=== PATIENT | male | born 1945 | race Caucasian/White ===

== ENCOUNTER 2017-12-05 10:11 | Inpatient (IN) | payer MEDICARE ==
[2017-12-05] MEDS ORDERED: PANTOPRAZOLE 40 MG/10 ML VIAL IVP STA (10:31)
[2017-12-05] MEDS ORDERED: SODIUM CHLORIDE 0.9% 500 ML 500 ML IV STA (10:31)
--- NOTE | 2017-12-05 10:44 | ED ---
General Adult HPI - General Chief complaint: GI Bleed Stated complaint: rectal bleeding Time Seen by Provider: 12/05/17 10:11 Source: patient, RN notes reviewed Mode of arrival: ambulatory Limitations: no limitations - History of Present Illness Initial comments: This is a 72-year-old male comes emergency Department complaining of bright red blood since Sunday morning. Patient states she's never had this before. Patient denies any blood thinners. Patient states she does have history of hemorrhoids but he states the amount of blood in the toilet has been quite concerning. Patient denies any other symptoms at this time. Patient denies lightheadedness dizziness or near syncopal episode. Patient denies any shortness of breath per patient denies any chest pain. Patient denies any abdominal pain. Patient denies any nausea vomiting or diarrhea. Patient states he has been told he had a little esophageal ulcer in the past but has not been giving any problems recently. Patient denies any recent fever chills. - Related Data Home Medications Medication Instructions Recorded Confirmed Aspirin [Desha Aspirin EC] 81 mg PO DAILY 12/05/17 12/05/17 Atorvastatin [Lipitor] 40 mg PO DAILY 12/05/17 12/05/17 B Complex-Vit C-Vit E-Zinc [Z-Bec] 1 tab PO DAILY 12/05/17 12/05/17 Cholecalciferol [Vitamin D3] 1,000 unit PO DAILY 12/05/17 12/05/17 Hydrochlorothiazide [Hydrodiuril] 25 mg PO DAILY 12/05/17 12/05/17 Multivitamins, Thera [Multivitamin 1 tab PO DAILY 12/05/17 12/05/17 (formulary)] Naproxen Sodium [Aleve] 440 mg PO DAILY 12/05/17 12/05/17 Pantoprazole [Protonix] 40 mg PO DAILY 12/05/17 12/05/17 Allergies Allergy/AdvReac Type Severity Reaction Status Date / Time Sulfa (Sulfonamide Allergy Unknown Verified 12/05/17 11:11 Antibiotics) Review of Systems ROS Statement: Those systems with pertinent positive or pertinent negative responses have been documented in the HPI. ROS Other: All systems not noted in ROS Statement are negative. Past Medical History Past Medical History: Hyperlipidemia, Hypertension Additional Past Medical History / Comment(s): ulcers History of Any Multi-Drug Resistant Organisms: None Reported Additional Past Surgical History / Comment(s): colonoscopy Past Psychological History: No Psychological Hx Reported Smoking Status: Former smoker Past Alcohol Use History: Occasional Past Drug Use History: None Reported General Exam - General Exam Comments Initial Comments: GENERAL: Patient is well-developed and well-nourished. Patient is nontoxic and well- hydrated and is in no acute distress. ENT: Neck is soft and supple. No significant lymphadenopathy is noted. Oropharynx is clear. Moist mucous membranes. Neck has full range of motion without eliciting any pain. EYES: The sclera were anicteric and conjunctiva were pink and moist. Extraocular movements were intact and pupils were equal round and reactive to light. Eyelids were unremarkable. PULMONARY: Unlabored respirations. Good breath sounds bilaterally. No audible rales rhonchi or wheezing was noted. CARDIOVASCULAR: There is a regular rate and rhythm without any murmurs gallops or rubs. ABDOMEN: Soft and nontender with normal bowel sounds. No palpable organomegaly was noted. There is no palpable pulsatile mass. RECTAL: On rectal exam there was bright red blood but no obvious source. SKIN: Skin is clear with no lesions or rashes and otherwise unremarkable. NEUROLOGIC: Patient is alert and oriented x3. Cranial nerves II through XII are grossly intact. Motor and sensory are also intact. Normal speech, volume and content. Symmetrical smile. MUSCULOSKELETAL: Normal extremities with adequate strength and full range of motion. No lower extremity swelling or edema. No calf tenderness. LYMPHATICS: No significant lymphadenopathy is noted PSYCHIATRIC: Normal psychiatric evaluation. Limitations: no limitations Course Vital Signs 12/05/17 10:14 Temperature 97.6 F Pulse Rate 112 H Respiratory 20 Rate Blood Pressure 132/78 O2 Sat by Pulse 96 Oximetry Medical Decision Making - Medical Decision Making On rectal exam patient bright red blood but no source of bleeding. I spoke to the [facility] hospitalist and admitted the patient I wrote admitting orders I repeated CBCs and I consult the GI - Lab Data Result diagrams: 12/05/17 11:17 12/05/17 11:17 Lab Results 12/05/17 12/05/17 12/05/17 Range/Units 11:17 11:17 11:17 WBC 9.3 (3.8-10.6) k/uL RBC 3.92 L (4.30-5.90) m/uL Hgb 12.8 L (13.0-17.5) gm/dL Hct 38.2 L (39.0-53.0) % MCV 97.5 (80.0-100.0) fL MCH 32.6 (25.0-35.0) pg MCHC 33.5 (31.0-37.0) g/dL RDW 13.8 (11.5-15.5) % Plt Count 194 (150-450) k/uL Neutrophils % 76 % Lymphocytes % 15 % Monocytes % 7 % Eosinophils % 1 % Basophils % 0 % Neutrophils # 7.1 (1.3-7.7) k/uL Lymphocytes # 1.4 (1.0-4.8) k/uL Monocytes # 0.6 (0-1.0) k/uL Eosinophils # 0.0 (0-0.7) k/uL Basophils # 0.0 (0-0.2) k/uL PT >130.0 H (9.0-12.0) sec INR >10.0 H* (<1.2) APTT 60.7 H (22.0-30.0) sec Sodium (137-145) mmol/L Potassium (3.5-5.1) mmol/L Chloride (98-107) mmol/L Carbon Dioxide (22-30) mmol/L Anion Gap mmol/L BUN (9-20) mg/dL Creatinine (0.66-1.25) mg/dL Est GFR (CKD-EPI)AfAm (>60 ml/min/1.73 sqM) Est GFR (CKD-EPI)NonAf (>60 ml/min/1.73 sqM) Glucose (74-99) mg/dL Calcium (8.4-10.2) mg/dL Total Bilirubin (0.2-1.3) mg/dL AST (17-59) U/L ALT (21-72) U/L Alkaline Phosphatase (38-126) U/L Total Creatine Kinase 145 (55-170) U/L CK-MB (CK-2) 2.3 (0.0-2.4) ng/mL CK-MB (CK-2) Rel Index 1.6 Troponin I <0.012 (0.000-0.034) ng/mL Total Protein (6.3-8.2) g/dL Albumin (3.5-5.0) g/dL TSH (0.465-4.680) mIU/L Free T4 (0.78-2.19) ng/dL Blood Type Blood Type Recheck Antibody Screen Spec Expiration Date 12/05/17 12/05/17 12/05/17 Range/Units 11:17 11:17 12:49 WBC (3.8-10.6) k/uL RBC (4.30-5.90) m/uL Hgb (13.0-17.5) gm/dL Hct (39.0-53.0) % MCV (80.0-100.0) fL MCH (25.0-35.0) pg MCHC (31.0-37.0) g/dL RDW (11.5-15.5) % Plt Count (150-450) k/uL Neutrophils % % Lymphocytes % % Monocytes % % Eosinophils % % Basophils % % Neutrophils # (1.3-7.7) k/uL Lymphocytes # (1.0-4.8) k/uL Monocytes # (0-1.0) k/uL Eosinophils # (0-0.7) k/uL Basophils # (0-0.2) k/uL PT (9.0-12.0) sec INR (<1.2) APTT (22.0-30.0) sec Sodium 142 (137-145) mmol/L Potassium 3.5 (3.5-5.1) mmol/L Chloride 105 (98-107) mmol/L Carbon Dioxide 29 (22-30) mmol/L Anion Gap 8 mmol/L BUN 23 H (9-20) mg/dL Creatinine 1.08 (0.66-1.25) mg/dL Est GFR (CKD-EPI)AfAm 79 (>60 ml/min/1.73 sqM) Est GFR (CKD-EPI)NonAf 69 (>60 ml/min/1.73 sqM) Glucose 113 H (74-99) mg/dL Calcium 9.1 (8.4-10.2) mg/dL Total Bilirubin 1.1 (0.2-1.3) mg/dL AST 35 (17-59) U/L ALT 40 (21-72) U/L Alkaline Phosphatase 51 (38-126) U/L Total Creatine Kinase (55-170) U/L CK-MB (CK-2) (0.0-2.4) ng/mL CK-MB (CK-2) Rel Index Troponin I (0.000-0.034) ng/mL Total Protein 6.3 (6.3-8.2) g/dL Albumin 3.6 (3.5-5.0) g/dL TSH 2.050 (0.465-4.680) mIU/L Free T4 1.42 (0.78-2.19) ng/dL Blood Type O Positive Blood Type Recheck CABO Indicated Antibody Screen NEGATIVE Spec Expiration Date 12/08/2017 - 234812/05/17 Range/Units 12:49 WBC (3.8-10.6) k/uL RBC (4.30-5.90) m/uL Hgb (13.0-17.5) gm/dL Hct (39.0-53.0) % MCV (80.0-100.0) fL MCH (25.0-35.0) pg MCHC (31.0-37.0) g/dL RDW (11.5-15.5) % Plt Count (150-450) k/uL Neutrophils % % Lymphocytes % % Monocytes % % Eosinophils % % Basophils % % Neutrophils # (1.3-7.7) k/uL Lymphocytes # (1.0-4.8) k/uL Monocytes # (0-1.0) k/uL Eosinophils # (0-0.7) k/uL Basophils # (0-0.2) k/uL PT 11.5 (9.0-12.0) sec INR 1.2 H (<1.2) APTT 21.7 L (22.0-30.0) sec Sodium (137-145) mmol/L Potassium (3.5-5.1) mmol/L Chloride (98-107) mmol/L Carbon Dioxide (22-30) mmol/L Anion Gap mmol/L BUN (9-20) mg/dL Creatinine (0.66-1.25) mg/dL Est GFR (CKD-EPI)AfAm (>60 ml/min/1.73 sqM) Est GFR (CKD-EPI)NonAf (>60 ml/min/1.73 sqM) Glucose (74-99) mg/dL Calcium (8.4-10.2) mg/dL Total Bilirubin (0.2-1.3) mg/dL AST (17-59) U/L ALT (21-72) U/L Alkaline Phosphatase (38-126) U/L Total Creatine Kinase (55-170) U/L CK-MB (CK-2) (0.0-2.4) ng/mL CK-MB (CK-2) Rel Index Troponin I (0.000-0.034) ng/mL Total Protein (6.3-8.2) g/dL Albumin (3.5-5.0) g/dL TSH (0.465-4.680) mIU/L Free T4 (0.78-2.19) ng/dL Blood Type Blood Type Recheck Antibody Screen Spec Expiration Date Disposition Clinical Impression: GI bleed Disposition: ADMITTED IP TO THIS HOSP Referrals: Ruth Duque DO [Primary Care Provider] - 1-2 days Time of Disposition: 14:09
[2017-12-05 11:48] LABS: Basophils % (A) 0 %; Eosinophils % (A) 1 %; HCT 38.2 % (39.0-53.0); HGB 12.8 gm/dL (13.0-17.5); Lymphocytes # (A) 1.4 k/uL (1.0-4.8); Lymphocytes % (A) 15 %; MCH 32.6 pg (25.0-35.0); MCHC 33.5 g/dL (31.0-37.0); MCV 97.5 fL (80.0-100.0); Mean Platelet Volume 7.5; Monocytes # (A) 0.6 k/uL (0-1.0); Monocytes % (A) 7 %; Neutrophils # (A) 7.1 k/uL (1.3-7.7); Neutrophils % (A) 76 %; Platelet Count 194 k/uL (150-450); RBC 3.92 m/uL (4.30-5.90); RDW 13.8 % (11.5-15.5); WBC 9.3 k/uL (3.8-10.6)
[2017-12-05 11:59] LABS: Albumin 3.6 g/dL (3.5-5.0); Calcium 9.1 mg/dL (8.4-10.2); Potassium 3.5 mmol/L (3.5-5.1); Total Bilirubin 1.1 mg/dL (0.2-1.3); Total Protein 6.3 g/dL (6.3-8.2)
[2017-12-05 12:13] LABS: Creatine Kinase 145 U/L (55-170)
[2017-12-05 12:27] LABS: Creatine Kinase MB 2.3 ng/mL (0.0-2.4); Troponin I <0.012 ng/mL (0.000-0.034)
[2017-12-05 12:31] LABS: Partial Thromboplastin Time 60.7 sec (22.0-30.0)
[2017-12-05 12:33] LABS: INR >10.0 (<1.2); Prothrombin Time >130.0 sec (9.0-12.0)
[2017-12-05 13:25] LABS: T4, Free (Free Thyroxine) 1.42 ng/dL (0.78-2.19)
[2017-12-05 13:26] LABS: INR 1.2 (<1.2); Partial Thromboplastin Time 21.7 sec (22.0-30.0); Prothrombin Time 11.5 sec (9.0-12.0)
[2017-12-05] MEDS ORDERED: SODIUM CHLORIDE 0.9% 1,000 ML IV ONE (14:09)
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
[2017-12-05] MEDS: PANTOPRAZOLE 40 MG/10 ML VIAL IVP SCH (20:06)
[2017-12-05 20:21] LABS: Basophils % (A) 0 %; Eosinophils # (A) 0.1 k/uL (0-0.7); Eosinophils % (A) 1 %; HCT 32.7 % (39.0-53.0); HGB 11.1 gm/dL (13.0-17.5); Lymphocytes # (A) 2.4 k/uL (1.0-4.8); Lymphocytes % (A) 28 %; MCH 32.9 pg (25.0-35.0); MCV 96.8 fL (80.0-100.0); Mean Platelet Volume 7.5; Monocytes # (A) 0.6 k/uL (0-1.0); Monocytes % (A) 7 %; Neutrophils # (A) 5.2 k/uL (1.3-7.7); Neutrophils % (A) 61 %; Platelet Count 172 k/uL (150-450); RBC 3.37 m/uL (4.30-5.90); RDW 13.8 % (11.5-15.5); WBC 8.4 k/uL (3.8-10.6)
[2017-12-06] MEDS: HYDROCHLOROTHIAZIDE 25 MG TAB PO SCH (08:31)
[2017-12-06] MEDS: PANTOPRAZOLE 40 MG/10 ML VIAL IVP SCH ×2 (08:31→20:07)
[2017-12-06 11:05] LABS: Basophils % (A) 0 %; Eosinophils # (A) 0.1 k/uL (0-0.7); Eosinophils % (A) 1 %; HCT 29.6 % (39.0-53.0); HGB 9.9 gm/dL (13.0-17.5); Lymphocytes # (A) 1.5 k/uL (1.0-4.8); Lymphocytes % (A) 23 %; MCH 33.1 pg (25.0-35.0); MCHC 33.4 g/dL (31.0-37.0); MCV 99.1 fL (80.0-100.0); Mean Platelet Volume 7.1; Monocytes # (A) 0.4 k/uL (0-1.0); Monocytes % (A) 6 %; Neutrophils # (A) 4.4 k/uL (1.3-7.7); Neutrophils % (A) 68 %; Platelet Count 167 k/uL (150-450); RBC 2.99 m/uL (4.30-5.90); RDW 14.2 % (11.5-15.5); WBC 6.5 k/uL (3.8-10.6)
[2017-12-06 11:15] LABS: Calcium 8.2 mg/dL (8.4-10.2); Potassium 3.4 mmol/L (3.5-5.1)
[2017-12-06 11:34] VITALS: BMI 38.0
--- NOTE | 2017-12-06 12:29 | P.PN ---
Subjective This is a pleasant 72 years old male with past medical history of hypertension, hyperlipidemia, hemorrhoids, chronic low back pain who presents because of bright red blood per rectum,pt report diarrhea for 4-5 days ago, about 12-15 episodes per day , associated with a lot of blood as per pt , fresh blood , clots and dark colored stool. pt has no abdominal pain , and no nausea or vomiting .no chest pain , no dyspnea , no change in urine habits, no fever. pt start taking baby aspirin by his surgeon after his knee surgery in 2010. pt also takes tow aleve tabs for his arthritis/arthralgia. on admission his hb is 12.8. his inr more than ten but when repeated it is 1.2. CMP was unremarkable for significant change. 12/06/2017 Patient remains without abdominal pain however he continued to have diarrhea with the same amount of blood. No nausea vomiting. His Vitas looks stable with blood pressure 138/65. Heart rate at 80. Patient is afebrile. However his hemoglobin is trending down slowly from 12.8 to 11.1 to 9.9 this morning. His BMP was unremarkable. Occult blood stool is positive. Pending GI evaluation CONSTITUTIONAL: No fever, no malaise, no fatigue. HEENT: No recent visual problems or hearing problems. Denied any sore throat. CARDIOVASCULAR: No orthopnea, PND, no palpitations, no syncope. PULMONARY: No shortness of breath, no cough, no hemoptysis. GASTROINTESTINAL: no nausea, no vomiting, no abdominal pain. Normoactive bowel sounds. NEUROLOGICAL: No headaches, no weakness, no numbness. HEMATOLOGICAL: Denies any bleeding or petechiae. GENITOURINARY: Denies any burning micturition, frequency, or urgency. MUSCULOSKELETAL/RHEUMATOLOGICAL: Denies any joint pain, swelling, or any muscle pain. ENDOCRINE: Denies any polyuria or polydipsia. Medication: Protonix 40 mg twice a day and hydrochlorothiazide 25 mg daily Objective - Vital Signs Vital signs: Vital Signs Temp 97.9 F 12/06/17 08:00 Pulse 80 12/06/17 08:00 Resp 16 12/06/17 08:00 BP 138/65 12/06/17 08:00 Pulse Ox 98 12/06/17 08:00 Intake & Output 12/05/17 12/06/17 12/06/17 18:59 06:59 18:59 Intake Total 1300 Balance 1300 Weight 107.955 kg 106.7 kg 106.7 kg Intake: Intake, IV Titration 1300 Amount Sodium Chloride 0.9% 1, 1300 000 ml @ 100 mls/hr IV . Q10H ONE Rx#:[id number] Other: Voiding Method Toilet Toilet # Voids 1 - Exam GENERAL: The patient is alert and oriented x3, not in any acute distress.obese HEENT: Pupils are round and equally reacting to light. EOMI. No scleral icterus. No conjunctival pallor. Normocephalic, atraumatic. No pharyngeal erythema. No thyromegaly. CARDIOVASCULAR: S1 and S2 present. No murmurs, rubs, or gallops. PULMONARY: Chest is clear to auscultation, no wheezing or crackles. ABDOMEN: Soft, nontender, nondistended, normoactive bowel sounds. No palpable organomegaly. MUSCULOSKELETAL: No joint swelling or deformity. EXTREMITIES: No cyanosis, clubbing, or pedal edema. NEUROLOGICAL: Gross neurological examination did not reveal any focal deficits. SKIN: No rashes. - Labs CBC & Chem 7: 12/06/17 10:46 12/06/17 10:46 Labs: Abnormal Lab Results - Last 24 Hours (Table) 12/05/17 12/05/17 12/05/17 Range/Units 11:17 12:49 20:02 RBC 3.37 L (4.30-5.90) m/uL Hgb 11.1 L (13.0-17.5) gm/dL Hct 32.7 L (39.0-53.0) % PT >130.0 H (9.0-12.0) sec INR >10.0 H* 1.2 H (<1.2) APTT 60.7 H 21.7 L (22.0-30.0) sec Potassium (3.5-5.1) mmol/L Chloride (98-107) mmol/L BUN (9-20) mg/dL Glucose (74-99) mg/dL Calcium (8.4-10.2) mg/dL 12/06/17 12/06/17 Range/Units 10:46 10:46 RBC 2.99 L (4.30-5.90) m/uL Hgb 9.9 L (13.0-17.5) gm/dL Hct 29.6 L (39.0-53.0) % PT (9.0-12.0) sec INR (<1.2) APTT (22.0-30.0) sec Potassium 3.4 L (3.5-5.1) mmol/L Chloride 110 H (98-107) mmol/L BUN 24 H (9-20) mg/dL Glucose 115 H (74-99) mg/dL Calcium 8.2 L (8.4-10.2) mg/dL Assessment and Plan Assessment: Acute GI bleed Acute blood loss anemia Hyperlipidemia Hypertension, essential Plan: This is a pleasant 72 years old male who presents with GI bleed. We will continue to monitor hemoglobin and hematocrit. Give protein pump inhibitor. Call GI consult. Labs and medication were reviewed Continue same treatment. Continue with symptomatic treatment. Resume home medication. Monitor lytes and vitals. DVT and GI prophylaxis. Further recommendations of the clinical course of the patient DVT prophylaxis: no heparin in view of GI bleed, continue with mechanical prophylaxis GI Prophylaxis: Pepcid PT/OT: Pending Prognosis is guarded
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
[2017-12-06 17:41] LABS: Basophils % (A) 0 %; Eosinophils # (A) 0.1 k/uL (0-0.7); Eosinophils % (A) 1 %; HCT 30.2 % (39.0-53.0); HGB 10.1 gm/dL (13.0-17.5); Lymphocytes # (A) 3.1 k/uL (1.0-4.8); Lymphocytes % (A) 31 %; MCH 32.6 pg (25.0-35.0); MCHC 33.4 g/dL (31.0-37.0); MCV 97.4 fL (80.0-100.0); Mean Platelet Volume 7.4; Monocytes # (A) 0.7 k/uL (0-1.0); Monocytes % (A) 7 %; Neutrophils # (A) 5.9 k/uL (1.3-7.7); Neutrophils % (A) 59 %; Platelet Count 199 k/uL (150-450); RDW 14.2 % (11.5-15.5)
[2017-12-07] MEDS: PANTOPRAZOLE 40 MG/10 ML VIAL IVP SCH (08:54)
--- NOTE | 2017-12-07 13:02 | P.PN ---
Subjective 72-year-old gentleman admitted for GI bleed believed to be upper GI bleed patient is on next patient will undergo upper GI endoscopy today. Possibly of coloscopy tomorrow. Patient did not have any bowel movements today. Constitutional: Denied any fatigue denied any fever. Cardio vascular: denied any chest pain, palpitations Gastrointestinal denied any nausea vomiting Pulmonary: Denied any shortness of breath cough Neurologic denied any new focal deficits Objective - Vital Signs Vital signs: Vital Signs Temp 97.7 F 12/07/17 11:55 Pulse 89 12/07/17 11:55 Resp 18 12/07/17 11:55 BP 139/63 12/07/17 11:55 Pulse Ox 97 12/07/17 11:55 Intake & Output 12/06/17 12/07/17 12/07/17 18:59 06:59 18:59 Intake Total 120 600 Balance 120 600 Weight 106.7 kg 107.3 kg Intake: IV 600 .9 600 Oral 120 Other: Voiding Method Toilet Toilet Toilet # Voids 2 1 1 # Bowel Movements 1 - Exam PHYSICAL EXAMINATION: GENERAL: The patient is alert and oriented x3, not in any acute distress. Well developed, well nourished. HEENT: Pupils are round and equally reacting to light. EOMI. No scleral icterus. No conjunctival pallor. Normocephalic, atraumatic. No pharyngeal erythema. No thyromegaly. CARDIOVASCULAR: S1 and S2 present. No murmurs, rubs, or gallops. PULMONARY: Chest is clear to auscultation, no wheezing or crackles. ABDOMEN: Soft, nontender, nondistended, normoactive bowel sounds. No palpable organomegaly. MUSCULOSKELETAL: No joint swelling or deformity. EXTREMITIES: No cyanosis, clubbing, or pedal edema. NEUROLOGICAL: Gross neurological examination did not reveal any focal deficits. SKIN: No rashes. - Labs CBC & Chem 7: 12/06/17 17:01 12/06/17 10:46 Labs: Abnormal Lab Results - Last 24 Hours (Table) 12/06/17 Range/Units 17:01 RBC 3.10 L (4.30-5.90) m/uL Hgb 10.1 L (13.0-17.5) gm/dL Hct 30.2 L (39.0-53.0) % Assessment and Plan Plan: Acute GI bleed, continue with the IV twice a day Protonix, upper GI endoscopy today possibly of colonoscopy depending on upper GI endoscopy results. Acute blood loss anemia Hyperlipidemia Hypertension, essential
[2017-12-07] MEDS ORDERED: PROPOFOL 10 MG/ML 20 ML VIAL IV ONE (18:55)
[2017-12-07] MEDS ORDERED: IV FLUID CONTINUATION 100 ML IV ONE (18:55)
[2017-12-07] MEDS ORDERED: LIDOCAINE 1% INJ 10MG/ML (20 ML MDV) ONE (18:55)
[2017-12-07] MEDS: HYDROCHLOROTHIAZIDE 25 MG TAB PO SCH (19:39)
--- NOTE | 2017-12-07 19:43 | P.PCN ---
Date of Procedure: 12/07/17 Description of Procedure: BRIEF HISTORY: Patient is a 72-year-old, pleasant, male patient with a history of esophageal ulcer with last EGD and colonoscopy 1 year ago in [place] presents the hospital with several days of painless bright red blood per rectum. The patient was initially noted to have a fall in his hemoglobin however it stabilizes stay. The patient continues to report symptoms of blood per rectum. Hemodynamically the patient remained stable. Per the patient's was no mention of diverticular disease, or hemorrhoids on colonoscopy. PROCEDURE PERFORMED: Esophagogastroduodenoscopy biopsy. PREOPERATIVE DIAGNOSIS: Anemia of acute blood loss, hematochezia. ESTIMATED BLOOD LOSS: Minimal. IV sedation per anesthesia. PROCEDURE: After informed consent was obtained, the patient was brought into the endoscopy unit. IV sedation was administered by Anesthesia under continuous monitoring. Initially the Olympus GIF-190 video endoscope was inserted into the mouth. Esophagus intubated without any difficulty. It was gradually advanced into the stomach and duodenum and carefully examined. The bulb and the second part of the duodenum appeared normal except for some mild scattered erythema which was biopsied. The scope at this time was withdrawn to the stomach, adequately insufflated with air, and upon careful examination, mucosa of the antrum, body, cardia and the fundus appeared grossly normal. There was some superficial mild erythema and superficial erosions in the antrum and body suggestive of gastritis which were biopsied. There was no evidence of active GI bleeding or old blood. The scope was then withdrawn into the esophagus. The GE junction was located at 39 cm from the incisors, with the Z line appearing somewhat irregular with biopsies taken . The esophagus appeared normal. There were no erosions or ulcerations seen and the patient tolerated the procedure well. IMPRESSION: 1. Gastritis, biopsied. Duodenum and GE junction biopsied. 2. No evidence of active GI bleed. RECOMMENDATIONS: The findings of this examination were discussed with the patient. Okay for diet, with liquids today. If the patient continues to have lower GI bleeding will discuss the possibility of repeat colonoscopy while admitted. If hemoglobin remains stable and bleeding slows, will advance diet and have patient seen after discharge in the gastroenterology clinic to set up colonoscopy. Continue to monitor hemoglobin and transfuse as needed.
[2017-12-07] MEDS: HYDROCORTISONE SUPPOSITORY 25 MG SUPP RECTAL SCH (20:39)
[2017-12-08] MEDS: PANTOPRAZOLE 40 MG TABLET PO SCH ×2 (06:34→16:23)
[2017-12-08 07:11] LABS: HCT 25.1 % (39.0-53.0); MCH 32.7 pg (25.0-35.0); MCHC 33.4 g/dL (31.0-37.0); MCV 98.1 fL (80.0-100.0); Platelet Count 159 k/uL (150-450); RBC 2.56 m/uL (4.30-5.90); RDW 14.9 % (11.5-15.5); WBC 7.6 k/uL (3.8-10.6)
[2017-12-08 07:19] LABS: HGB 8.4 gm/dL (13.0-17.5)
[2017-12-08 07:29] LABS: Anion Gap 7 mmol/L; Blood Urea Nitrogen 13 mg/dL (9-20); Calcium 7.9 mg/dL (8.4-10.2); Carbon Dioxide 24 mmol/L (22-30); Chloride 108 mmol/L (98-107); Glucose 90 mg/dL (74-99); Potassium 3.1 mmol/L (3.5-5.1); Sodium 139 mmol/L (137-145)
[2017-12-08] MEDS: HYDROCORTISONE SUPPOSITORY 25 MG SUPP RECTAL SCH ×2 (08:40→20:10)
[2017-12-08] MEDS: ATORVASTATIN 40 MG TAB PO SCH (08:40)
[2017-12-08 09:45] VITALS: RESP 16
[2017-12-08] MEDS ORDERED: POTASSIUM CHLORIDE ER 20 MEQ TAB.ER PO STA ×2 (09:52→18:51)
[2017-12-08] MEDS ORDERED: Potassium Replacement Protocol 1 EACH MISC MISCELLANE PRN (10:03)
--- NOTE | 2017-12-08 11:41 | P.PN ---
Subjective 72-year-old gentleman admitted for GI bleed believed to be upper GI bleed patient is on next patient will undergo upper GI endoscopy today. Possibly of coloscopy tomorrow. Patient did not have any bowel movements today. 12/08/2017 Patient said he had one bloody bowel movement yesterday his hemoglobin is 8.2 which is a significant drop. We will monitor him here. If he continues to have bleeding patient will need a colonoscopy. Patient upper GI endoscopy did not show any significant abnormality. Constitutional: Denied any fatigue denied any fever. Cardio vascular: denied any chest pain, palpitations Gastrointestinal denied any nausea vomiting Pulmonary: Denied any shortness of breath cough Neurologic denied any new focal deficits Objective - Vital Signs Vital signs: Vital Signs Temp 97.8 F 12/08/17 08:00 Pulse 84 12/08/17 08:00 Resp 16 12/08/17 08:00 BP 140/67 12/08/17 08:00 Pulse Ox 94 L 12/08/17 08:00 Intake & Output 12/07/17 12/08/17 12/08/17 18:59 06:59 18:59 Intake Total 50 Output Total 3 Balance 47 Weight 106.9 kg Intake: IV 50 Output: Urine/Stool Mix 3 Other: Voiding Method Toilet Toilet Toilet # Voids 1 1 - Exam PHYSICAL EXAMINATION: GENERAL: The patient is alert and oriented x3, not in any acute distress. Well developed, well nourished. HEENT: Pupils are round and equally reacting to light. EOMI. No scleral icterus. No conjunctival pallor. Normocephalic, atraumatic. No pharyngeal erythema. No thyromegaly. CARDIOVASCULAR: S1 and S2 present. No murmurs, rubs, or gallops. PULMONARY: Chest is clear to auscultation, no wheezing or crackles. ABDOMEN: Soft, nontender, nondistended, normoactive bowel sounds. No palpable organomegaly. MUSCULOSKELETAL: No joint swelling or deformity. EXTREMITIES: No cyanosis, clubbing, or pedal edema. NEUROLOGICAL: Gross neurological examination did not reveal any focal deficits. SKIN: No rashes. - Labs CBC & Chem 7: 12/08/17 06:15 12/08/17 06:15 Labs: Abnormal Lab Results - Last 24 Hours (Table) 11/03/18 11/03/18 Range/Units 06:15 06:15 RBC 2.56 L (4.30-5.90) m/uL Hgb 8.4 L D (13.0-17.5) gm/dL Hct 25.1 L (39.0-53.0) % Potassium 3.1 L (3.5-5.1) mmol/L Chloride 108 H (98-107) mmol/L Calcium 7.9 L (8.4-10.2) mg/dL Assessment and Plan Plan: Acute GI bleed, continue with the IV twice a day Protonix, upper GI endoscopy did not show any significant abnormality possibility of lower GI lead cannot be ruled out patient may have hemorrhoids patient was started on hemorrhoidal cream. If patient continues to bleed the patient will undergo colonoscopy on Sunday Acute blood loss anemia Hyperlipidemia Hypertension, essential
--- NOTE | 2017-12-09 01:34 | P.PN ---
Subjective Progress Note Date: 12/08/17 Principal diagnosis: Blood per rectum, anemia Patient reports that he has not had any bowel movements today, he only pass gas and a few small clots. He tolerated his liquids. No abdominal pain. Objective - Vital Signs Vital signs: Vital Signs Temp 97 F L 12/08/17 20:00 Pulse 80 12/08/17 20:00 Resp 16 12/08/17 20:00 BP 128/65 12/08/17 20:00 Pulse Ox 94 L 12/08/17 20:00 Intake & Output 12/08/17 12/08/17 12/09/17 06:59 18:59 05:59 Intake Total 50 1560 480 Output Total 3 Balance 47 1560 480 Weight 106.9 kg 106.9 kg Intake: IV 50 Oral 1560 480 Output: Urine/Stool Mix 3 Other: Voiding Method Toilet Toilet Toilet # Voids 1 1 1 # Bowel Movements 1 - Exam Constitutional: Lying in bed in no apparent distress Head: normocephalic/atraumatic Eyes: No icterus, no injection Mouth: Moist mucous membranes Nose: No discharge noted Neck: Trachea midline Lungs: Normal air entry in all lung crouch, no wheezing appreciated Abdomen: Soft, nontender, nondistended, normal bowel sounds. No guarding or rigidity Skin: No rashes, no jaundice Neuro: Awake alert and oriented 3, no focal deficits - Labs CBC & Chem 7: 12/08/17 06:15 12/08/17 20:38 Labs: Abnormal Lab Results - Last 24 Hours (Table) 12/08/17 12/08/17 12/08/17 Range/Units 06:15 06:15 16:49 RBC 2.56 L (4.30-5.90) m/uL Hgb 8.4 L D (13.0-17.5) gm/dL Hct 25.1 L (39.0-53.0) % Potassium 3.1 L 3.2 L (3.5-5.1) mmol/L Chloride 108 H (98-107) mmol/L Calcium 7.9 L (8.4-10.2) mg/dL 12/08/17 Range/Units 20:38 RBC (4.30-5.90) m/uL Hgb (13.0-17.5) gm/dL Hct (39.0-53.0) % Potassium 3.4 L (3.5-5.1) mmol/L Chloride (98-107) mmol/L Calcium (8.4-10.2) mg/dL Assessment and Plan (1) GI bleed Narrative/Plan: Bright red blood per rectum with negative EGD (significant only for gastritis), this likely represents a lower GI bleed with diverticular bleed and hemorrhoidal bleed the 2 most likely etiologies, also consider AVM, malignancy or other etiology. Current Visit: Yes Status: Acute Code(s): K92.2 - GASTROINTESTINAL HEMORRHAGE, UNSPECIFIED SNOMED Code(s): 34789632 (2) Anemia due to blood loss Narrative/Plan: Secondary to above. Current Visit: Yes Status: Acute Code(s): D50.0 - IRON DEFICIENCY ANEMIA SECONDARY TO BLOOD LOSS (CHRONIC) SNOMED Code(s): 122213996 Plan: Supportive care Tolerating diet Monitor hemoglobin and transfuse as needed Await pathology from biopsies on EGD Patient will need colonoscopic evaluation, with the timing based on his clinical course. If the patient continues to improve symptomatically and has a stable hemoglobin tomorrow would recommend advancing diet and discharging for outpatient colonoscopy. However if the patient has worsening or continued symptoms were a fall in his hemoglobin tomorrow will prep for colonoscopy. This has been discussed with the patient who agrees with the plan and has ensured that he will follow up for a colonoscopy if discharged. Thank you for allowing us to participate in the care of this patient we will follow
[2017-12-09 05:35] VITALS: PULSE 101
[2017-12-09 06:37] LABS: HCT 27.1 % (39.0-53.0); MCH 32.9 pg (25.0-35.0); MCHC 33.1 g/dL (31.0-37.0); MCV 99.3 fL (80.0-100.0); Macrocytosis Slight; Mean Platelet Volume 7.1; Platelet Count 196 k/uL (150-450); RBC 2.73 m/uL (4.30-5.90); RDW 15.9 % (11.5-15.5); WBC 9.4 k/uL (3.8-10.6)
[2017-12-09] MEDS: PANTOPRAZOLE 40 MG TABLET PO SCH (06:40)
[2017-12-09 06:49] LABS: Anion Gap 6 mmol/L; Blood Urea Nitrogen 9 mg/dL (9-20); Calcium 8.4 mg/dL (8.4-10.2); Carbon Dioxide 24 mmol/L (22-30); Chloride 109 mmol/L (98-107); Glucose 105 mg/dL (74-99); Potassium 3.5 mmol/L (3.5-5.1); Sodium 139 mmol/L (137-145)
[2017-12-09] MEDS: ATORVASTATIN 40 MG TAB PO SCH (08:05)
[2017-12-09] MEDS: POTASSIUM CHLORIDE ER 20 MEQ TAB.ER PO SCH ×2 (08:05→10:04)
[2017-12-09 08:10] VITALS: BP 140/77; TEMP 97.6
[2017-12-09] MEDS: HYDROCORTISONE SUPPOSITORY 25 MG SUPP RECTAL SCH (08:44)
[2017-12-09] MEDS ORDERED: POTASSIUM CHLORIDE ER 20 MEQ TAB.ER PO STA (10:44)
--- NOTE | 2017-12-09 11:14 | P.DS ---
Providers Date of admission: 12/07/17 15:02 Attending physician: Vee Fink Consults: 12/05/17 14:09 Consult Physician Urgent Consulting Provider: Alicia Freedman Consult Reason/Comments: GI bleed Do you want consulting provider notified?: Yes Primary care physician: [facility] Course: 72-year-old gentleman admitted for GI bleed believed to be upper GI bleed patient is on next patient will undergo upper GI endoscopy today. Possibly of coloscopy tomorrow. Patient did not have any bowel movements today. 12/08/2017 Patient said he had one bloody bowel movement yesterday his hemoglobin is 8.2 which is a significant drop. We will monitor him here. If he continues to have bleeding patient will need a colonoscopy. Patient upper GI endoscopy did not show any significant abnormality. 12/09/2017 Patient's hemoglobin remained stable, we do not believe patient has any active bleed at this time. Patient was evaluated by gastroenterology patient will follow with [facility] as an outpatient. Patient's blood pressure is fairly stable without hydrochlorothiazide here because of which this medication is being discontinued but as an outpatient if his blood pressure goes up again he can be resumed on hydrochlorothiazide but potassium need to be supplemented at the time. PHYSICAL EXAMINATION: GENERAL: The patient is alert and oriented x3, not in any acute distress. Well developed, well nourished. HEENT: Pupils are round and equally reacting to light. EOMI. No scleral icterus. No conjunctival pallor. Normocephalic, atraumatic. No pharyngeal erythema. No thyromegaly. CARDIOVASCULAR: S1 and S2 present. No murmurs, rubs, or gallops. PULMONARY: Chest is clear to auscultation, no wheezing or crackles. ABDOMEN: Soft, nontender, nondistended, normoactive bowel sounds. No palpable organomegaly. MUSCULOSKELETAL: No joint swelling or deformity. EXTREMITIES: No cyanosis, clubbing, or pedal edema. NEUROLOGICAL: Gross neurological examination did not reveal any focal deficits. SKIN: No rashes. Assessment and Plan Plan: Acute GI bleed, upper GI endoscopy did not show any significant abnormality possibility of lower GI lead cannot be ruled out patient may have hemorrhoids patient was started on hemorrhoidal cream. Patient will follow-up with gastroenterology as an outpatient and colonoscopy as an outpatient Acute blood loss anemia Hyperlipidemia Hypertension, essential Plan - Discharge Summary Discharge Rx Participant: No New Discharge Prescriptions: Discontinued Aspirin [Colby Aspirin EC] 81 mg PO DAILY Hydrochlorothiazide [Hydrodiuril] 25 mg PO DAILY Naproxen Sodium [Aleve] 440 mg PO DAILY No Action Atorvastatin [Lipitor] 40 mg PO DAILY B Complex-Vit C-Vit E-Zinc [Z-Bec] 1 tab PO DAILY Cholecalciferol [Vitamin D3] 1,000 unit PO DAILY Multivitamins, Thera [Multivitamin (formulary)] 1 tab PO DAILY Pantoprazole [Protonix] 40 mg PO DAILY Discharge Medication List Atorvastatin [Lipitor] 40 mg PO DAILY 12/05/17 [History] B Complex-Vit C-Vit E-Zinc [Z-Bec] 1 tab PO DAILY 12/05/17 [History] Cholecalciferol [Vitamin D3] 1,000 unit PO DAILY 12/05/17 [History] Multivitamins, Thera [Multivitamin (formulary)] 1 tab PO DAILY 12/05/17 [History ] Pantoprazole [Protonix] 40 mg PO DAILY 12/05/17 [History] Follow up Appointment(s)/Referral(s): Ruth Duque DO [Primary Care Provider] - 3 Days Brad Quintero MD [STAFF PHYSICIAN] - 1 Week Patient Instructions/Handouts: Gastrointestinal Bleeding (DC), Vitamin K in Foods (DC), Warfarin Toxicity (ED) Discharge Disposition: HOME SELF-CARE
== END 2017-12-09 14:18 | disposition home or self-care (01) | DRG 378 ==
LOC: EC 10:11 → 3SCARD 14:09 → OBSVTOIN 12-07 15:02
PROVIDERS: ADMIT Hospitalist; ATTEND Hospitalist
PROC: 0DB78ZX Excision of Stomach, Pylorus, Via Natural or Artificial Opening Endoscopic, Diagnostic (ICD-10-PCS; 2017-12-07)
PROC: 0DB68ZX Excision of Stomach, Via Natural or Artificial Opening Endoscopic, Diagnostic (ICD-10-PCS; 2017-12-07)
PROC: 0DB98ZX Excision of Duodenum, Via Natural or Artificial Opening Endoscopic, Diagnostic (ICD-10-PCS; principal; 2017-12-07 09:35)
DX: K92.2 Gastrointestinal hemorrhage, unspecified (principal); D62 Acute posthemorrhagic anemia; E78.5 Hyperlipidemia, unspecified; I10 Essential (primary) hypertension; Z87.11 Personal history of peptic ulcer disease; Z79.82 Long term (current) use of aspirin; Z80.8 Family history of malignant neoplasm of other organs or systems; Z82.49 Family history of ischemic heart disease and other diseases of the circulatory system; Z87.19 Personal history of other diseases of the digestive system; Z87.891 Personal history of nicotine dependence; Z96.652 Presence of left artificial knee joint; Z98.42 Cataract extraction status, left eye; Z79.1 Long term (current) use of non-steroidal anti-inflammatories (NSAID); Z79.899 Other long term (current) drug therapy; K64.9 Unspecified hemorrhoids; M54.9 Dorsalgia, unspecified; G89.29 Other chronic pain; M15.9 Polyosteoarthritis, unspecified; Z88.2 Allergy status to sulfonamides
CPT/HCPCS: 36415; 43239; 80048; 80053; 82272; 82550; 82553; 84132; 84439; 84443; 84484; 85025; 85027; 85610; 85730; 86850; 86900; 86901; 88305; 96361; 96365; 99284

== ENCOUNTER → 2019-04-09 | Outpatient (CLI) | payer MEDICARE ==
[2019-04-09 10:13] LABS: Appearance,Urine Clear (Clear); Bilirubin,Urine Negative (Negative); Blood,Urine Negative (Negative); Color,Urine Yellow; Glucose,Urine (UA) Negative (Negative); Ketones,Urine Negative (Negative); Leukocyte Esterase,Urine Negative (Negative); Nitrite,Urine Negative (Negative); PH, Urine 5.5 (5.0-8.0); Protein,Urine Negative (Negative); Specific Gravity,Urine 1.021 (1.001-1.035); Urobilinogen,Urine <2.0 mg/dL (<2.0)
[2019-04-09 10:31] LABS: Basophils % (A) 1 %; Eosinophils # (A) 0.2 k/uL (0-0.7); Eosinophils % (A) 3 %; HCT 51.4 % (39.0-53.0); HGB 16.6 gm/dL (13.0-17.5); Lymphocytes # (A) 1.8 k/uL (1.0-4.8); Lymphocytes % (A) 27 %; MCH 31.6 pg (25.0-35.0); MCHC 32.3 g/dL (31.0-37.0); MCV 97.9 fL (80.0-100.0); Mean Platelet Volume 7.6; Monocytes # (A) 0.4 k/uL (0-1.0); Monocytes % (A) 7 %; Neutrophils % (A) 60 %; Platelet Count 158 k/uL (150-450); RBC 5.25 m/uL (4.30-5.90); RDW 13.5 % (11.5-15.5); WBC 6.6 k/uL (3.8-10.6)
[2019-04-09 18:01] LABS: African American GFR (CKD) 69.6 (60.0-200.0); Albumin 4.5 g/dL (3.80-4.90); Albumin/Globulin Ratio 2.14 (1.60-3.17); Anion Gap 14.4 mmol/L (4.00-12.00); BUN/Creat Ratio 19.17 Ratio (12.00-20.00); Calcium 9.4 mg/dL (8.7-10.3); Carbon Dioxide 25.6 mmol/L (21.6-31.8); Chol/HDL Ratio 3.59; Globulin 2.1 g/dL (1.6-3.3); LDL Cholesterol,Calculated 77.2 mg/dL (0.0-131.0); Non-African American GFR(CKD) 60.1 (60.0-200.0); Potassium 4.1 mmol/L (3.5-5.5); Total Bilirubin 0.9 mg/dL (0.3-1.2); Total Protein 6.6 g/dL (6.2-8.2); VLDL Calculation 36.8 mg/dL (5.00-40.00)
[2019-04-09 20:14] LABS: Hemoglobin A1C 6.3 % (4.0-6.0)
== END | disposition home or self-care (01) ==
LOC: LABWHC1 09:23
PROVIDERS: ATTEND Family Medicine
DX: I10 Essential (primary) hypertension (principal); R73.9 Hyperglycemia, unspecified; Z12.5 Encounter for screening for malignant neoplasm of prostate
CPT/HCPCS: 80061; 80053; 85025; 81003; 83036; 36415; G0103

== ENCOUNTER → 2022-01-19 | Outpatient (CLI) | payer MEDICARE ==
[2022-01-19 19:27] LABS: Basophils # (A) 0.04 X 10*3/uL (0.00-0.10); Basophils % (A) 0.5 %; Eosinophils # (A) 0.05 X 10*3/uL (0.04-0.35); Eosinophils % (A) 0.6 %; HCT 52.3 % (39.6-50.0); HGB 17.8 g/dL (13.0-17.0); Immature Grans, Automated 0.3 %; Lymphocytes # (A) 1.61 X 10*3/uL (0.90-5.00); Lymphocytes % (A) 18.6 %; MCH 32.7 pg (27.0-32.0); MCV 96.1 fL (80.0-97.0); Mean Platelet Volume 10.4 fL (9.5-12.2); Monocytes # (A) 0.61 X 10*3/uL (0.20-1.00); Monocytes % (A) 7.1 %; NRBC Per 100 WBC 0 /100 WBCS (0.0-0.0); Neutrophils % (A) 72.9 %; Platelet Count 182 X 10*3/uL (140-440); RBC 5.44 X 10*6/uL (4.40-5.60); RDW 13.3 % (11.5-14.5); WBC 8.64 X 10*3/uL (4.50-10.00)
[2022-01-19 20:09] LABS: Appearance,Urine Clear (Clear); Bilirubin,Urine Negative (Negative); Blood,Urine Negative (Negative); Color,Urine Yellow (Yellow); Ketones,Urine Negative (Negative); Nitrite,Urine Negative (Negative); Specific Gravity,Urine 1.018 (1.001-1.030); Urobilinogen,Urine 0.2 (0.2,1.0)
[2022-01-19 23:54] LABS: ALT 46 U/L (10-49); AST 29 U/L (14-35); Albumin 4.4 g/dL (3.8-4.9); Albumin/Globulin Ratio 1.85 (1.60-3.17); Alkaline Phosphatase 79 U/L (41-126); Blood Urea Nitrogen 15.6 mg/dL (9.0-27.0); Carbon Dioxide 28.7 mmol/L (20.0-27.5); Chloride 101 mmol/L (96-109); Chol/HDL Ratio 3.77 Ratio; Globulin 2.4 g/dL (1.6-3.3); Glucose 142 mg/dL (70-110); Non-African American GFR(CKD) 69.9 (60.0-200.0); Potassium 4.2 mmol/L (3.5-5.5); Sodium 142 mmol/L (135-145); Total Protein 6.8 g/dL (6.2-8.2)
== END | disposition home or self-care (01) ==
LOC: LABWHC1 11:47
PROVIDERS: ATTEND Family Medicine
DX: Z12.5 Encounter for screening for malignant neoplasm of prostate (principal); I10 Essential (primary) hypertension; E78.5 Hyperlipidemia, unspecified; R73.9 Hyperglycemia, unspecified; M89.8X9 Other specified disorders of bone, unspecified site
CPT/HCPCS: 80061; 80053; 85025; 81003; 82306; 83036; 36415; G0103

== ENCOUNTER → 2023-01-23 | Outpatient (CLI) | payer MEDICARE ==
[2023-01-23 15:48] LABS: Hepatitis A Antibody IgM Nonreactive; Hepatitis B Core IgM Nonreactive; Hepatitis B Surface Antigen Nonreactive; Hepatitis C IgG Antibody Nonreactive
[2023-01-23 16:08] LABS: Ceruloplasmin 19.8 mg/dL (20.0-60.0)
[2023-01-23 18:53] LABS: % Iron Saturation 33.06 (15.00-50.00); Bilirubin, Conjugated 0.23 mg/dL (0.20-0.40); Bilirubin,Unconjugated 0.67 mg/dL (0.20-1.00); Total Bilirubin 0.9 mg/dL (0.3-1.2)
[2023-01-24 10:29] LABS: Smooth Muscle Antibody 7 UNITS (<20)
== END | disposition home or self-care (01) ==
LOC: LABWHC1 11:51
PROVIDERS: ATTEND Internal Medicine
DX: R74.01 Elevation of levels of liver transaminase levels (principal)
CPT/HCPCS: 36415; 80074; 82248; 82390; 82525; 83516; 83540; 83550; 86038; 86645; 86665

== ENCOUNTER → 2023-02-08 | Outpatient (CLI) | payer MEDICARE ==
--- NOTE | 2023-02-08 12:26 | US ---
EXAMINATION TYPE: US liver DATE OF EXAM: 02/08/2023 COMPARISON: NONE CLINICAL INDICATION: Male, 77 years old with history of R74.01 ELEVATION OF LEVELS OF LIVER TRANSAMIN ASE L; TECHNIQUE: Multiple sonographic images of the right upper quadrant are obtained. FINDINGS: EXAM MEASUREMENTS: Liver Length: 17.4 cm Gallbladder Wall: 0.21 cm CBD: 0.32 cm Right Kidney: 10.6 x 5.4 x 5.2 cm MANAGER MACHINE NOTES: Suboptimal study due to overlying bowel gas and large patient body habitus Pancreas: Obscured by bowel gas Liver: limited evaluation ; slightly enlarged heterogenous echotexture. No suspicious masses or cys tic structures. Gallbladder: Appears wnl Evidence for sonographic Green's sign: No CBD: wnl Right Kidney: Appears wnl IMPRESSION: 1. No evidence for acute process. 2. Hepatic steatosis.
== END | disposition home or self-care (01) ==
LOC: RADUSWWP 09:29
PROVIDERS: ATTEND Internal Medicine
DX: K76.0 Fatty (change of) liver, not elsewhere classified (principal); R74.01 Elevation of levels of liver transaminase levels
CPT/HCPCS: 76705